=== PATIENT | male | born 1980 | race Two or more races ===

== ENCOUNTER 2025-03-30 17:27 | Inpatient (IN) | payer MEDICAID, SELFPAY ==
[2025-03-30] VITALS (8 sets, daily range): BP systolic 116–146; BP diastolic 75–97; PULSE 57–83; RESP 14–99; TEMP 36.2–36.8; O2SAT 95–99; BMI 40.8
--- NOTE | 2025-03-30 18:22 | EKG_ITS ---
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
--- NOTE | 2025-03-30 18:36 | XR_ITS ---
Examination: CT brain head without contrast. 2-D sagittal coronal reconstructions Date and time of exam:March 30, 2025 1848 hours INDICATIONS: Stroke alert, onset dizziness difficulty walking 90 minutes ago CTDI: vol (mGy):52 DLP: (mGycm):1112 Technique: Multiple CT axial sections of the brain have been obtained, 5 mm slice thickness. Contrast has not been administered. 2-D sagittal, coronal reconstructions have been obtained Low dose protocols were performed. One or more of the following dose reduction techniques were used; automated exposure control, adjustment of the mA and/or KV according to patient size, use of iterative reconstruction technique. Findings: No significant ventricular enlargement. Intra-axial or extra-axial hemorrhage density is not seen. No mass effect or midline shift Basal cisterns are not remarkable. Fourth ventricle is midline. Cranial vault intact. Impression: Negative for acute hemorrhage, mass effect or midline shift
--- NOTE | 2025-03-30 18:36 | XR_ITS ---
Examination: CTA carotids with intravenous contrast CTA brain, head with intravenous contrast. 2-D sagittal, coronal reconstructions. 3-D reconstructions. Exam date and time: March 30, 2025 1854 hours INDICATIONS: Stroke alert today onset dizziness and ataxia CTDI: vol (mGy) 69 DLP: (mGycm) 553 Technique: Multiple CTA axial brain, head carotid images post intravenous contrast injection 75 cc, Isovue-370. 2-D sagittal, coronal reconstructions. 3-D reconstructions, 3-D post processing including vascular maximum intensity projection images. Low dose protocols were performed. One or more of the following dose reduction techniques were used; automated exposure control, adjustment of the mA and/or KV according to patient size, use of iterative reconstruction technique. Findings: No common carotid carotid bifurcation or internal carotid artery stenoses Diffusely small right vertebral artery but no significant vertebral artery stenoses No cerebral large vessel occlusions or thrombus IMPRESSION: No significant neck arterial stenoses No cerebral vessel arterial occlusions or thrombus Consider brain MRI MRA without contrast, stroke protocol, to assess for demyelinating disease, acute ischemic change
--- NOTE | 2025-03-30 18:37 | PD.EDRME ---
Rapid Medical Screening Exam RME Arrival date/time: 03/30/25 17:27 44M with history of DM presents to ED with dizziness and abnormal walking starting 1 hour ago. Patient was driving when this happened. No slurred speech or vision changes. Chief Complaint: Dizziness Time Seen by Provider: 03/30/25 19:26 Vital signs: Vital Signs Temperature 98.2 F 03/30/25 18:16 Pulse Rate 78 03/30/25 18:16 Respiratory Rate 20 03/30/25 18:16 Blood Pressure 125/84 03/30/25 18:16 Pulse Oximetry (%) 95 03/30/25 18:16 Oxygen Delivery Method Room Air 03/30/25 18:16 RME Narrative: Patient is a 44-year-old male who presents to the emergency department after sudden onset of severe sensation of the room spinning and difficulty walking. Family with the patient states that he was walking sideways . He denies facial droop, numbness, tingling, motor weakness in any limbs. No facial tingling or droop. Patient states that this severe sensation of vertigo comes and goes now. However, the initial episode lasted for an hour. Now the patient has episodic vertigo without exacerbation with position change. On exam: Patient has fine rightward horizontal nystagmus which is not exacerbated with position change. His symptoms do not exacerbate with symptom change. Patient has a normal cerebellar exam other than the nystagmus and the sensation of vertigo. 19:28 I received a call from the telemetry neurologist. She gave the patient a 0 on the NIH stroke scale. She however did recommend an MRI of the brain in order to completely rule out cerebellar CVA.. Patient is not a tPA candidate. Teleneurologist said that 1 hour symptom onset episode is quite unusual and lack of exacerbation with position change puts him at risk for cerebellar CVA. Will admit pending the MRI 19:[address] Gupta (resident working with Dr. Lackey). We discussed the patient's case in detail. And he agreed to come down and evaluate the patient for admission pending MRI. EKG (19: 10) normal sinus rhythm at 72 with normal axis, no ectopy and no signs of acute ischemia.
[2025-03-30 19:04] LABS: Basophils % (Auto) 1 % (0-2.5); Eosinophils # (Auto) 0.1 Thou/mm3 (0.0-0.5); Eosinophils % (Auto) 1 % (0-10); Hematocrit 43.3 % (41.0-53.0); Hemoglobin 15.4 g/dL (13.5-16.0); Immature Granulocytes % (Auto) 1 % (0-0); Immature Granulocytes Auto 0.07 Thou/mm3 (0.00-0.00); Lymphocytes # (Auto) 2.5 Thou/mm3 (1.0-4.8); Lymphocytes % (Auto) 32 % (10-50); Mean Corpuscular HGB Conc 35.6 g/dl (31.0-37.0); Mean Corpuscular Hemoglobin 32.1 pg (25.0-35.0); Mean Corpuscular Volume 90 fL (80-100); Monocytes # (Auto) 0.7 Thou/mm3 (0.0-0.8); Monocytes % (Auto) 9 % (0-12); Neutrophils # (Auto) 4.4 Thou/mm3 (1.8-7.7); Neutrophils % (Auto) 57 % (37-80); Nucleated Red Blood Cell % 0 /100 WBC (0); Platelet Count 219 Thou/mm3 (140-440); RDW Standard Deviation 44.6 fL (35.1-43.9); White Blood Count 7.7 Thou/mm3 (3.8-10.6)
--- NOTE | 2025-03-30 19:09 | PC.NURSE ---
PER TELE-NEUROLOGIST PATIENT NIH SCORE WAS 0 .
[2025-03-30 19:17] LABS: INR 1.1 (0.9-1.3); Partial Thromboplastin Time 27.9 Seconds (22.0-36.0); Prothrombin Time 12.4 Seconds (9.0-12.2)
[2025-03-30 19:21] LABS: Alanine Aminotransferase 32 U/L (10-49); Albumin, Serum 4.8 gm/dL (3.5-5.0); Albumin/Globulin Ratio 2.3 (1.2-2.2); Alkaline Phosphatase 79 U/L (46-116); Anion Gap 11 (7-16); Aspartate Amino Transferase 25 U/L (0-34); BUN/Creatinine Ratio 14 Ratio (12-20); Bilirubin,Total 1.3 mg/dL (0.3-1.2); Blood Urea Nitrogen 14 mg/dL (9-23); Calcium 9.6 mg/dL (8.3-10.6); Calcium (Corrected) 9.6 mg/dL (8.5-10.1); Carbon Dioxide 24.5 mMol/L (20.0-31.0); Chloride 105 mMol/L (98-107); Globulin 2.1 gm/dL (2.3-3.5); Glucose 211 mg/dL (74-106); Magnesium 2.2 mg/dL (1.6-2.6); Osmolality,Calculated 285 (275-295); Potassium 3.9 mMol/L (3.4-5.1); Sodium 140 mMol/L (136-145); Total Protein 6.9 gm/dL (5.7-8.2); Troponin I < 0.020 ng/mL (0.0-0.045); eGFR > 60 See Note
[2025-03-30] MEDS: MECLIZINE HCL 25 MG TABLET PO (19:21)
--- NOTE | 2025-03-30 19:29 | ESCONSULT_ITS ---
Tele Neuro Consultation Consultation Date 03/30/25 Most Recent Vital Signs Last Vital Signs Temp 98.2 F 03/30/25 18:16 Pulse 83 03/30/25 19:22 Resp 15 03/30/25 19:22 BP 146/97 H 03/30/25 19:22 Pulse Ox 98 03/30/25 19:22 O2 Del Method Room Air 03/30/25 19:22 Laboratory-Coagulation Panel PT 12.4 Seconds (9.0-12.2) H 03/30/25 18:48 INR 1.1 (0.9-1.3) 03/30/25 18:48 APTT 27.9 Seconds (22.0-36.0) 03/30/25 18:48 Consultation Narrative [facility] Tele[facility]urology Consult [facility] Patient Name:???Shravan Knight Date of :???1980 Identification Number:??? Date of Service:???03/30/2025 18:38:23 Diagnosis:?R42 - Dizziness/ Vertigo/ Giddiness Impression: ?Shravan Knight is a 44 y.o. man with a history of diabetes who was LKW at around 1700. He was driving to a store with his when he suddenly felt dizzy. He said he felt like the road was moving. Nothing like this has ever happened to him before. The dizziness was constant for about an hour. Then it stopped and has been intermittent, lasting minutes at a time since then. He feels a little dizzy lying down on the CT table. He says the dizziness feels like a spinning sensation. Denies any headache. Denies any unilateral numbness or weakness. Denies any change in speech. He says some days he has blurry vision. NIHSS 0. He is able to stand and walk independently. Non contrast head CT shows no acute findings. CTA head/neck shows no LVO. Patient is presenting with an episodic vestibular syndrome. Unclear if it is triggered. Given the isolated dizziness, differential diagnosis includes a peripheral vestibulopathy (e.g. vestibular neuritis) more likely than stroke. TNK was not offered due to lack of disabling findings on exam. TIA is NOT on the differential as he continues to have episodes of dizziness now, about 2 hours after onset. ? ? ?Recommendations: ?- Start aspirin 325 mg daily for stroke prevention for now; can D/C if MRI brain shows no acute ischemia ?- Permissive hypertension up to 220/120 x 24 hours or less if MRI happens sooner and shows no acute stroke; then goal BP normotensive ?- Continuous cardiac monitoring to evaluate for paroxysmal atrial fibrillation ?- MRI brain without contrast to evaluate for acute ischemia ?- Send routine stroke labs including HbA1c, fasting lipid panel ?- PT/OT/ST evaluation when able ? Our recommendations are outlined below. Recommendations: ? Stroke/Telemetry Floor ? Neuro Checks (Q2) ? Bedside Swallow Eval ? DVT Prophylaxis ? IV Fluids, Normal Saline ? Head of Bed 30 Degrees ? Euglycemia and Avoid Hyperthermia (PRN Acetaminophen) ? Initiate or continue Aspirin 325 MG daily ? Antihypertensives PRN if Blood pressure is greater than 220/120 or there is a concern for End organ damage/contraindications for permissive HTN. If blood pressure is greater than 220/120 give labetalol PO or IV or Vasotec IV with a goal of 15% reduction in BP during the first 24 hours. Sign Out: ? Discussed with Emergency Department Provider Advanced Imaging:CTA Head and Neck Completed. LVO:No Patient is not a candidate for ADORE Metrics: Last Known Well: 03/30/2025 17:00:00 Dispatch Time: 03/30/2025 18:38:23 Arrival Time: 03/30/2025 17:27:00 Initial Response Time: 03/30/2025 18:41:11Symptoms: dizziness. Initial patient interaction: 03/30/2025 18:44:08 NIHSS Assessment Completed: 03/30/2025 18:58:29Patient is not a candidate for Thrombolytic. Thrombolytic Medical Decision: 03/30/2025 18:58:31Patient was not deemed ca ndidate for Thrombolytic because of following reasons: Stroke severity too mild (non-disabling) . CT Head: I personally reviewed all the CT images that were available to me and it showed: no signs of acute ischemia or acute hemorrhage. I personally reviewed the CTA head/neck. There are no signs of LVO. Primary Provider Notified of Diagnostic Impression and Management Plan on: 03/30/2025 19:28:44 History of Present Illness:Patient is a 44 year old Male. Patient was brought by private transportation with symptoms of dizziness. Shravan Knight is a 44 y.o. man with a history of diabetes who was LKW at around 1700. He was driving to a store with his when he suddenly felt dizzy. He said he felt like the road was moving. Nothing like this has ever happened to him before. The dizziness was constant for about an hour. Then it stopped and has been intermittent, lasting minutes at a time since then. He feels a little dizzy lying down on the CT table. He says the dizziness feels like a spinning sensation. Denies any headache. Denies any unilateral numbness or weakness. Denies any change in speech. He says some days he has blurry vision. ? Past Medical History: Other PMH:? diabetes Medications: No Anticoagulant use? No Antiplatelet use Reviewed EMR for current medications Allergies:? Reviewed,NKDA Social History: Smoking: No Alcohol Use: Yes Family History: There is no family history of premature cerebrovascular disease pertinent to this consultation ROS : 14 Points Review of Systems was performed and was negative except mentioned in HPI. Past Surgical History: There Is No Surgical History Contributory To Today?s Visit ? Examination: BP(125/84),?Pulse(76), 1A: Level of Consciousness - Alert; keenly responsive?+ 0 1B: Ask Month and Age - Both Questions Right?+ 0 1C: Blink Eyes & Squeeze Hands - Performs Both Tasks?+ 0 2: Test Horizontal Extraocular Movements - Normal?+ 0 3: Test Visual Mcrae - No Visual Loss?+ 0 4: Test Facial Palsy (Use Grimace if Obtunded) - Normal symmetry?+ 0 5A: Test Left Arm Motor Drift - No Drift for 10 Seconds?+ 0 5B: Test Right Arm Motor Drift - No Drift for 10 Seconds?+ 0 6A: Test Left Leg Motor Drift - No Drift for 5 Seconds?+ 0 6B: Test Right Leg Motor Drift - No Drift for 5 Seconds?+ 0 7: Test Limb Ataxia (FNF/Heel-Miranda) - No Ataxia?+ 0 8: Test Sensation - Normal; No sensory loss?+ 0 9: Test Language/Aphasia - Normal; No aphasia?+ 0 10: Test Dysarthria - Normal?+ 0 11: Test Extinction/Inattention - No abnormality?+ 0 NIHSS Score:?0 NIHSS Free Text :?patient able to stand and walk independently Pre-Morbid Modified Falls Scale:0 Points = No symptoms at all Spoke with :?Dr. Arteaga This consult was conducted in real time using interactive audio and video technology. Patient was informed of the technology being used for this visit and agreed to proceed. Patient located in hospital and provider located at home/office setting. Patient is being evaluated for possible acute neurologic impairment and high probability of imminent or life-threatening deterioration. I spent total of 47 minutes providing care to this patient, including time for face to face visit via telemedicine, review of medical records, imaging studies and discussion of findings with providers, the patient and/or family. Dr Gabriella Rodriguez [facility] For Inpatient follow-up with [facility] physician please call [facility] at . As we are not an outpatient service for any post hospital discharge needs please contact the hospital for assistance. If you have any questions for the [facility] physicians or need to reconsult for clinical or diagnostic changes please contact us via [facility] at .
[2025-03-30] MEDS: Aspirin 325 MG TABLET PO (19:48)
--- NOTE | 2025-03-30 20:23 | ESHP_ITS ---
Documentation for date of: 03/30/25 HPI History of Present Illness Chief complaint: dizziness History of present illness: 44-year-old male with past medical history of diabetes presented to the ED today due to dizziness. Last well-known was around 1700. Patient states he was driving to the store with his when he suddenly felt like the room was spinning. Patient had to pull to the side of the road and have his drive to the store. When patient arrived to the store as he was walking to the [place] he felt the dizziness got worse to the point the patient had nausea. Patient reported about 3 more episodes of vomiting and decided to bring the patient to the ER. He gets worse when he ambulates or moves and gets better while laying in bed. Patient also endorses some on and off blurry vision that has been going on for about 1 to 2 weeks. In the ER stroke alert was called teleneurology was consulted patient had NIHSS is scale of 0 due to this no TNK was administered. Teleneurology recommended to continue to treat as CVA until MRIs done as there is still concern for cerebellar stroke. At this time patient denies headache, fever, chills, blurry vision, shortness of breath, chest pain, abdominal pain, weakness. ED course: ED vitals: BP 125/84, HR 78, RR 20, O2 sat 95% room air ED labs: CBC unremarkable, CMP shows glucose 211, T. bili 1.3, rest within normal limits In the ED patient received loading dose of aspirin and meclizine x 1 PMHx: As above SX Hx: Right knee surgery Social Hx: Denies cigarette use, denies illicit substances including THC, social alcohol user FH X: Diabetes on mother side Review of Systems Review of Systems Systems Reviewed: All systems reviewed, normal except as documented Narrative Review of Systems: All 12 systems reviewed and found normal unless otherwise stated in the HPI. Exam Vital Signs Temp Pulse Resp BP Pulse Ox O2 Del Method 98.2 F 69 14 116/84 99 Room Air 03/30/25 19:53 03/30/25 19:53 03/30/25 19:53 03/30/25 19:53 03/30/25 19:53 03/30/25 19:53 Narrative Exam Physical Exam GENERAL: NAD, AAOx3, obese HEENT: Moist mucosa. Eyes open, symmetrical, & clear CARDIO: Heart RRR, no obvious murmurs PULM: No noted coughing/dyspnea CTA B/L, no R/W/R GI: Abdomen soft, nondistended, no pain on palpation. BSx4 SKIN/MSK/EXT: No wounds/rashes/edema/amputations, no pain on palpation. Pedal pulses present B/L NEURO: AAOx3, strength and sensation intact, able to move all 4 extremities with equal strength Results: Labs 03/30/25 18:48 03/30/25 18:48 Labs: Short CBC 03/30/25 Range/Units 18:48 WBC 7.7 (3.8-10.6) Thou/mm3 Hgb 15.4 (13.5-16.0) g/dL Hct 43.3 (41.0-53.0) % Plt Count 219 (140-440) Thou/mm3 BMP 03/30/25 18:48 Sodium 140 Potassium 3.9 Chloride 105 Carbon Dioxide 24.5 BUN 14 Creatinine 1.0 Glucose 211 H Calcium 9.6 Cardiac Enzymes 03/30/25 Range/Units 18:48 Troponin I < 0.020 (0.0-0.045) ng/mL Liver Function 03/30/25 Range/Units 18:48 Total Bilirubin 1.3 H (0.3-1.2) mg/dL AST 25 (0-34) U/L ALT 32 (10-49) U/L Alkaline Phosphatase 79 (46-116) U/L Albumin 4.8 (3.5-5.0) gm/dL Quality Measures Quality Measures VTE prophylaxis Medications Home Medications and Allergies Allergies Allergy/AdvReac Type Severity Reaction Status Date / Time No Known Allergies Allergy Verified 03/30/25 17:31 Visit Medications Acetaminophen (Acetaminophen 325 Mg Tablet) 650 mg PO Q6H PRN PRN Reason: Fever >99.5 Stop: 04/29/25 20:06 Acetaminophen (Acetaminophen 500 Mg Tablet) 1,000 mg PO Q6H PRN PRN Reason: PAIN SCALE 1-3 (mild Stop: 04/29/25 20:06 Aspirin (Aspirin Ec 81 Mg Tabec) 81 mg PO QDAY EKTA Stop: 04/30/25 08:59 Atorvastatin Calcium (Atorvastatin Calcium 20 Mg Tablet) 80 mg PO HS EKTA Stop: 04/29/25 20:59 Labetalol HCl (Labetalol Inj 5 Mg/Ml Vial 20 Ml) 10 mg IVP Q6H PRN PRN Reason: SBP>220 Stop: 04/29/25 20:21 Ondansetron HCl (Ondansetron Inj 2 Mg/Ml Inj 2 Ml) 4 mg IVP Q6H PRN; Protocol PRN Reason: NAUSEA OR VOMITING Stop: 04/29/25 20:06 Discontinued Medications Aspirin (Aspirin 325 Mg Tablet) 325 mg PO X1 ONE Stop: 03/30/25 19:40 Last Admin: 03/30/25 19:48 Dose: 325 mg Meclizine HCl (Meclizine Hcl 25 Mg Tablet) 25 mg PO X1 ONE Stop: 03/30/25 18:37 Last Admin: 03/30/25 19:21 Dose: 25 mg Assessment & Plan Plan 44-year-old male with past medical history of diabetes who came to the ED due to dizziness. Patient is admitted for CVA workup. #CVA workup #Dizziness Patient had dizziness onset around 5 PM on 03/30/2025 worsens with movement gets better while laying still Initial NIHSS: 0, no TNK was administered CT head and CTA head/neck negative for LVO acute hemorrhage, midline shift, mass effect ? Permissive hypertension, labetalol as needed for systolic blood pressure more than 220 ? MRI brain ? Echo bubble study ? IV fluids ? Euglycemia ? Speech, physical therapy consulted ? Neurochecks every 4 ? N.p.o. till swallow screen passed ? Telemetry to evaluate for A-fib #Diabetes mellitus type 2 ? Follow-up A1c ? SSI ? Hypoglycemia protocol in place Health Maintenance: Disposition: Telemetry, CVA workup Fluids: NS Feeding: N.p.o. till swallow screen Thrombo prophylaxis: SCDs Gastric Ulcer prophylaxis: Not indicated CODE STATUS: Limited code, no intubation Case discussed with my attending Dr. Ziyad Garcia MD PGY-1 Attending Provider Attestation/Addendum I, Tahmina Lackey DO, attest that I was physically present for the villeda portions of the service and evaluated the patient with the resident and I reviewed and discussed the case with the resident and agree with the resident's findings and plans of care as documented above Patient is a 44 year old male with Pmhx of Type 2 NIDDM who presented to the ED with dizziness that began at 5pm this evening. Patient was driving with his to the store when he began feeling dizzy such that patient had to wire puller. Patient states that he had occasional episodes of dizziness in the past, but are usually self-limited. Patient takes Janumet 100mg/200mg PO daily and Jardiance 25mg PO daily. He also works in the [employer] and states that he stays hydrated during the day. He denies any fevers, chills, sinus pressure. He reports some nausea, but dizziness has resolved. He describes it as the room appears to be spinning and worse with movement. He endorses having about 2 weeks of blurriness and states that his primary doctor referred him to optometry. Patient states he has been compliant with his medications. CT head was done in the ED showing no acute intracranial findings. CTA head/neck was also unremarkable. He received meclizine and aspirin. Patient was evaluated by teleneuro and recommends MRI. TNK was not recommended as vertigo is more likely than CVA. Craig Halpike Negative on exam. MS 4+/5 in all four extremities. Gross sensation intact. No focal neurological deficits. No Nystagmus noted on exam. Will admit to telemetry for further workup of CVA. Will order MRI and echo, allow for permissive hypertension and start on aspirin 325mg and statin.
--- NOTE | 2025-03-30 20:51 | EDNOTE_ITS ---
ED Dizzyness RME/HPI General Chief Complaint: Dizziness Stated Complaint: Dizziness, difficulty ambulating Time Seen by Provider: 03/30/25 19:26 Arrival date/time: 03/30/25 17:27 RME / HPI RME / HPI Narrative: Dr. Arteaga?s Main ED Evaluation: Patient is a 44-year-old male who presents to the emergency department after sudden onset of severe sensation of the room spinning and difficulty walking. Family with the patient states that he was walking sideways . He denies facial droop, numbness, tingling, motor weakness in any limbs. No facial tingling or droop. Patient states that this severe sensation of vertigo comes and goes now. However, the initial episode lasted for an hour. Now the patient has episodic vertigo without exacerbation with position change. Related Data Previous Rx's ?Medication ?Instructions ?Recorded ibuprofen 800 mg tablet 800 mg PO TID PRN pain #30 t abs 08/12/23 ibuprofen 600 mg tablet 600 mg PO TID PRN pain #30 t abs 02/10/24 lidocaine 5 % topical patch 1 patch topical QDAY #15 e a 02/10/24 (Lidoderm) Allergies Allergy/AdvReac Type Severity Reaction Status Date / Time No Known Allergies Allergy Verified 03/30/25 17:31 Review of Systems Review of Systems Systems Reviewed: All systems reviewed, normal except as documented Past Medical History Past Medical History NEUROLOGIC: Negative Neurological Disorders or Seizures CARDIAC: Negative Cardiac Disorders or Congestive Heart Failure RESPIRATORY: Negative Chronic Obstructive Pulmonary Disease (COPD) or Asthma GASTROINTESTINAL: Negative Gastrointestinal Disorders GENITOURINARY: Negative Genitourinary Disorders or Renal Disease MUSCULOSKELETAL: Positive Musculoskeletal Disorders and Arthritis (knee); Negative Gout ENDOCRINE: Negative Endocrine Disorders, Diabetes Mellitus Type 1 or Diabetes Mellitus Type 2 HEMATOLOGIC: Negative Sickle Cell Disease OTHER HISTORY: Negative Hospitalization, Autoimmune Disease, Blood Transfusions, Blood Transfusion Reaction, Anesthesia Reactions, MRSA, Clostridium Difficile or Cancer Family History FAMILY HISTORY: Negative Family Neurologic Problems, Family Psychiatric Problems, Family Respiratory Disorders, Family Cardiac Disorders, Family Gastrointestinal Problems, Family Cancer, Family Surgery or Family Anesthesia Reaction Social History SMOKING STATUS: Never smoker SUBSTANCE USE: does not use ED Exam Narrative Physical exam: GENERAL APPEARANCE: alert and oriented x 4, well-developed, well-nourished, no acute distress VITALS: All vitals were reviewed and the pulse ox is 99% on room air, which is normal according to my interpretation. HEENT: Normocephalic, atraumatic; pupils equal, round, reactive to light; EOMI; fine rightward horizontal nystagmus that is not exacerbated on positional changes; mucous membranes pink, moist; oropharynx clear NECK: Supple LUNGS: CTABL; no wheezes, no rales, no rhonchi HEART: Regular rate, regular rhythm; normal S1, S2; no murmurs ABDOMEN: non distended; normal BS; soft, no tenderness, no guarding, no rebound; no masses, no organomegaly, no hernia BACK: no CVA tenderness EXTREMITIES: atraumatic; no edema NEUROLOGIC: awake; alert and oriented x4; cranial nerves II-XII grossly intact; no focal sensory or motor deficits; no intention tremor, steccato speech, dysmetria or dysdiadochokinesia PSYCHIATRIC: appropriate mood and affect SKIN: warm, dry, normal color; no rashes Course Course Course Narrative: 44-year-old male who presented to the emergency department with acute onset of severe vertigo-like symptoms lasting for an hour along with ataxia. After that it improved but has been coming and going. Position change does not exacerbate the patient's symptoms. A stroke alert was called and the patient received CT head without contrast as well as a CTA head and neck. I spoke with the teleneurologist and patient received a 0 on the NIH stroke scale and was recommended not to have TNK. However it was recommended that the patient receiv e an MRI in the morning. Patient received aspirin as well as meclizine without improvement. I called and spoke with the resident for Dr. Bacon and patient to be admitted. Quality Measures Suspected type of Stroke: Unknown at this time Tenecteplase given: Reason(s) TPA not given: Stroke severity too mild (non-disabling) not given stroke Orders Category Date Time Status Bedside Blood Glucose NOW Care 03/30/25 18:36 Active Blood glucose [Bedside Blood Glucose] NOW Care 03/30/25 18:22 Completed Latent Print Examiner NOW Care 03/30/25 18:36 Active Continuous Pulse Oximetry NOW Care 03/30/25 18:36 Completed EKG (ED ONLY) *Do not use* NOW Care 03/30/25 18:22 Completed In and Out Catheter NEEDED Care 03/30/25 18:36 Active Insert IV NOW Care 03/30/25 18:36 Active NIH Stroke Scale now Care 03/30/25 18:36 Active NPO NOW Care 03/30/25 18:36 Active Nurse Swallow Screen x1 Care 03/30/25 18:36 Active Consult to Neurology / Tele-Neurology Routine Cons 03/30/25 18:[address] angio stroke protocol Stat Exams 03/30/25 18:[address] stroke protocol Stat Exams 03/30/25 18:36 Completed EKG (ED Only) Stat Exams 03/30/25 18:22 Draft CBC Stat Lab 03/30/25 18:48 Completed Comprehensive Metabolic Panel Stat Lab 03/30/25 18:48 Completed Drug Screen,Urine Stat Lab 03/30/25 18:36 Ordered Magnesium Stat Lab 03/30/25 18:48 Completed Partial Thromboplastin Time Stat Lab 03/30/25 18:48 Completed Prothrombin Time with INR Stat Lab 03/30/25 18:48 Completed Troponin I Stat Lab 03/30/25 18:48 Completed Urinalysis Stat Lab 03/30/25 18:36 Ordered Urine Culture Stat Lab 03/30/25 18:36 Ordered Aspirin Med 03/30/25 19:39 Discontinued 325 mg PO X1 ONE Meclizine HCl [Antivert] Med 03/30/25 18:36 Discontinued 25 mg PO X1 ONE Oxygen Delivery NOW RT 03/30/25 18:36 Active Vital Signs Vital signs: Vital Signs Temperature 98.2 F 03/30/25 18:16 Pulse Rate 78 03/30/25 18:16 Respiratory Rate 20 03/30/25 18:16 Blood Pressure 125/84 03/30/25 18:16 Pulse Oximetry (%) 95 03/30/25 18:16 Oxygen Delivery Method Room Air 03/30/25 18:16 Dizziness MDM Narrative MDM Narrative:: 19:28 I received a call from the telemetry neurologist, Dr. Rodriguez. She gave the patient a 0 on the NIH stroke scale. She however did recommend an MRI of the brain in order to completely rule out cerebellar CVA.. Patient is not a tPA candidate. Teleneurologist said that 1 hour symptom onset episode is quite unusual and lack of exacerbation with position change puts him at risk for cerebellar CVA. Will admit pending the MRI 19:[address] Gupta (resident working with Dr. Lackey). We discussed the patient's case in detail. And he agreed to come down and evaluate the patient for admission pending MRI. EKG (19: 10) normal sinus rhythm at 72 with normal axis, no ectopy and no signs of acute ischemia. Patient data External records reviewed:: [facility] previous records (Per chart review, patient has no relevant previous ED visits.) Clinical information provided by:: patient Social determinants that could affect healthcare access:: none Patient has the following chronic illnesses:: none How is presenting disease/condition affected by chronic disease/condition?: no chronic disease Evaluation data The following diagnostics were reviewed and interpreted by me:: lab results, radiology exam(s) and EKG tracing(s) Lab and/or radiology exams considered but not ordered:: none Interpretation Summary: CBC normal, CMP normal. [facility] Report Signed Patient: JESSICA TOVAR Record#: [id number] Birthdate: 1980 Age/Sex: 44 / M Location: [facility] Attending Dr: Ordering Physician: Sha Morrison PA-C Date of Service: 03/30/25 Procedure(s): CT stroke protocol Accession Number(s): [id number] cc: Iman Peter; Lyndon Burns MD; Sha Morrison PA-C~ Examination: CT brain head without contrast. 2-D sagittal coronal reconstructions Date and time of exam:March 30, 2025 1848 hours INDICATIONS: Stroke alert, onset dizziness difficulty walking 90 minutes ago CTDI: vol (mGy):52 DLP: (mGycm):1112 Technique: Multiple CT axial sections of the brain have been obtained, 5 mm slice thickness. Contrast has not been administered. 2-D sagittal, coronal reconstructions have been obtained Low dose protocols were performed. One or more of the following dose reduction techniques were used; automated exposure control, adjustment of the mA and/or KV according to patient size, use of iterative reconstruction technique. Findings: No significant ventricular enlargement. Intra-axial or extra-axial hemorrhage density is not seen. No mass effect or midline shift Basal cisterns are not remarkable. Fourth ventricle is midline. Cranial vault intact. Impression: Negative for acute hemorrhage, mass effect or midline shift Dictated By: Lyndon Burns MD Signed By: <Electronically signed by Lyndon Burns MD in [place] 03/30/25 1859 [facility] Report Signed Patient: JESSICA TOVAR Record#: [id number] Birthdate: 1980 Age/Sex: 44 / M Location: [facility] Attending Dr: Ordering Physician: Sha Morrison PA-C Date of Service: 03/30/25 Procedure(s): CT angio stroke protocol Accession Number(s): [id number] cc: Iman Peter; Lyndon Burns MD; Sha Morrison PA-C~ Examination: CTA carotids with intravenous contrast CTA brain, head with intravenous contrast. 2-D sagittal, coronal reconstructions. 3-D reconstructions. Exam date and time: March 30, 2025 1854 hours INDICATIONS: Stroke alert today onset dizziness and ataxia CTDI: vol (mGy) 69 DLP: (mGycm) 553 Technique: Multiple CTA axial brain, head carotid images post intravenous contrast injection 75 cc, [id number]. 2-D sagittal, coronal reconstructions. 3-D reconstructions, 3-D post processing including vascular maximum intensity projection images. Low dose protocols were performed. One or more of the following dose reduction techniques were used; automated exposure control, adjustment of the mA and/or KV according to patient size, use of iterative reconstruction technique. Findings: No common carotid carotid bifurcation or internal carotid artery stenoses Diffusely small right vertebral artery but no significant vertebral artery stenoses No cerebral large vessel occlusions or thrombus IMPRESSION: No significant neck arterial stenoses No cerebral vessel arterial occlusions or thrombus Consider brain MRI MRA without contrast, stroke protocol, to assess for demyelinating disease, acute ischemic change Dictated By: Lyndon Burns MD Signed By: <Electronically signed by Lyndon Burns MD in [place]> 03/30/25 192 Medications / Prescriptions Medications or Prescriptions considered but not ordered:: none Medication administrations:: Medication Administration History Acetaminophen (Acetaminophen 325 Mg Tablet) 650 mg PO Q6H PRN PRN Reason: Fever >99.5 Stop: 04/29/25 20:06 Acetaminophen (Acetaminophen 500 Mg Tablet) 1,000 mg PO Q6H PRN PRN Reason: PAIN SCALE 1-3 (mild Stop: 04/29/25 20:06 Aspirin (Aspirin 325 Mg Tablet) 325 mg PO QDAY [facility] Stop: 04/30/25 08:59 Atorvastatin Calcium (Atorvastatin Calcium 20 Mg Tablet) 80 mg PO HS [facility] Stop: 04/29/25 20:59 Dextrose (Dextrose 50%-Water Inj 50 Ml Syringe) 25 ml IV Q15MIN PRN PRN Reason: BG 50-70 responsive npo pt Stop: 04/29/25 20:36 Dextrose (Dextrose 50%-Water Inj 50 Ml Syringe) 50 ml IV Q15MIN PRN PRN Reason: BG <50 OR BG <70 & pt unresponsive Stop: 04/29/25 20:36 Glucagon (Glucagon Inj 1 Mg Vial) 1 mg IM Q15MIN PRN PRN Reason: BG <70, and no IV access Sodium Chloride (Ns) 1,000 mls @ 60 mls/hr IV .[id number] [facility] Stop: 04/29/25 20:38 Insulin Human Lispro (Insulin Lispro (Admelog) 1 Unit/0.01 Ml Unit) 0 unit SC AC [facility]; Protocol Stop: 04/30/25 07:29 Labetalol HCl (Labetalol Inj 5 Mg/Ml Vial 20 Ml) 10 mg IVP Q6H PRN PRN Reason: SBP>220 Stop: 04/29/25 20:21 Ondansetron HCl (Ondansetron Inj 2 Mg/Ml Inj 2 Ml) 4 mg IVP Q6H PRN; Protocol PRN Reason: NAUSEA OR VOMITING Stop: 04/29/25 20:06 Discontinued Medications Aspirin (Aspirin 325 Mg Tablet) 325 mg PO X1 ONE Stop: 03/30/25 19:40 Last Admin: 03/30/25 19:48 Dose: 325 mg Documented By: CVL Aspirin (Aspirin Ec 81 Mg Tabec) 81 mg PO QDAY [facility] Stop: 04/30/25 08:59 Meclizine HCl (Meclizine Hcl 25 Mg Tablet) 25 mg PO X1 ONE Stop: 03/30/25 18:37 Last Admin: 03/30/25 19:21 Dose: 25 mg Documented By: CVL see above Consultations Consultation(s) initiated? (list below): Yes Diagnosis Dizziness Differential Diagnosis: other (peripheral vertigo, cerebellar CVA, vestibular neuritis) Most likely diagnosis given after review of the tests above:: vertigo, r/o cerebellar stroke Admission Indicated Admission indicated?: indicated Admission Request Was there a request for admission?: Yes Admission Attestation Admission request attestation: Discussed case with [] from Hospitalist service regarding admission. Discussed patients ED course, exam findings, labs, and radiology results. The Hospitalist [agrees,declines] to accept the patient for admission. Disposition Plan Disposition Plan: Admit Critical Care Time Critical Care Time Critical Care Time: Yes Total Critical Care Time (min.): 45 Attestation: The high probability of sudden, clinically significant deterioration in the patient?s condition required the highest level of my preparedness to intervene urgently. The services I provided to this patient were to treat and/or prevent clinically significant deterioration. Services included the following: chart data review, reviewing nursing notes and/or old charts, documentation time, sap business intelligence consultant collaboration regarding findings and treatment options, medication orders and management, direct patient care, vital sign assessments and ordering, interpreting and reviewing diagnostic studies and lab tests. Aggregate critical care time includes only time during which I was engaged in work directly related to the patient?s care, as described above, whether at bedside or elsewhere in the Emergency Department. It did not include time spent performing other reported procedures or the services of residents, students, nurses or physician assistants. Discharge Plan Plan Patient Disposition: Admit Acute Care w/in Hospital Problem List Clinical Impression: Vertigo
[2025-03-30] MEDS: ATORVASTATIN CALCIUM 20 MG TABLET 80 MG PO (22:14)
[2025-03-30] MEDS: SODIUM CHLORIDE 0.9% 1000 ML 1,000 ML 60 ML IV (22:16)
[2025-03-30 22:23] LABS: Thyroid Stimulating Hormone 1.15 uIU/mL (0.55-4.78)
--- NOTE | 2025-03-30 22:23 | PC.NURSE ---
Report called to floor nurse BRODY Harmon
[2025-03-31] VITALS (8 sets, daily range): BP systolic 110–152; BP diastolic 69–97; PULSE 53–104; RESP 12–98; TEMP 36–36.8; O2SAT 97–99; BMI 40.4
--- NOTE | 2025-03-31 | XR_ITS ---
Examinations: MRI Brain without intravenous contrast. MRA brain without intravenous contrast. MRA carotids without intravenous contrast 3-D vascular reconstructions Date and time of exam: March 31, 2025 0933 hours INDICATIONS: Stroke alert March 30, 2025, onset focal neurologic deficit, dizziness blurred vision beginning yesterday Technique: Multiple axial and sagittal images of the brain have been obtained MRA brain carotid images without contrast obtained, including 3-D postprocessing, vascular maximum intensity projection images Findings: Sellaturcica is not enlarged. The optic chiasm and infundibular stalk are not remarkable. Prepontine and interpeduncular cisterns are not enlarged. No localized enlargement of the medulla or pato. Fourth ventricle and cerebellar tonsils normal in position. Subacute hemorrhage is not seen. Fourth ventricle is midline. Mass in the cerebellopontine angle region is not evident. 7th and 8th nerve complexes exhibits symmetry. Globes are symmetrical with no retro-orbital mass. Increased white matter signal not seen Diffusion-weighted images demonstrate no focus of restricted diffusion Mass-effect upon the ventricular system is not identified. MRA carotid images degraded by patient motion. MRA brain images no large vessel occlusions Impression: Negative for acute hemorrhage mass effect or midline shift No acute infarct No MR findings diagnostic for demyelinating disease Right mastoiditis Significant maxillary antral ethmoid chronic sinusitis
[2025-03-31 06:44] LABS: Basophils # (Auto) 0.1 Thou/mm3 (0.0-0.2); Basophils % (Auto) 1 % (0-2.5); Eosinophils # (Auto) 0.1 Thou/mm3 (0.0-0.5); Eosinophils % (Auto) 1 % (0-10); Hematocrit 44.5 % (41.0-53.0); Hemoglobin 15.5 g/dL (13.5-16.0); Immature Granulocytes % (Auto) 1 % (0-0); Immature Granulocytes Auto 0.05 Thou/mm3 (0.00-0.00); Lymphocytes # (Auto) 2.2 Thou/mm3 (1.0-4.8); Lymphocytes % (Auto) 32 % (10-50); Mean Corpuscular HGB Conc 34.8 g/dl (31.0-37.0); Mean Corpuscular Volume 92 fL (80-100); Monocytes # (Auto) 0.6 Thou/mm3 (0.0-0.8); Monocytes % (Auto) 9 % (0-12); Neutrophils # (Auto) 3.9 Thou/mm3 (1.8-7.7); Neutrophils % (Auto) 57 % (37-80); Nucleated Red Blood Cell % 0 /100 WBC (0); Platelet Count 203 Thou/mm3 (140-440); Red Blood Count 4.85 Miln/mm3 (4.50-5.90); White Blood Count 6.9 Thou/mm3 (3.8-10.6)
[2025-03-31 06:46] LABS: Glucose Estimated Average 163 mg/dL (80-131); Hemoglobin A1C 7.3 % Hgb (4.8-6.0)
[2025-03-31 06:54] LABS: Alanine Aminotransferase 30 U/L (10-49); Albumin, Serum 4.3 gm/dL (3.5-5.0); Albumin/Globulin Ratio 2.2 (1.2-2.2); Alkaline Phosphatase 65 U/L (46-116); Anion Gap 11 (7-16); Aspartate Amino Transferase 22 U/L (0-34); BUN/Creatinine Ratio 19 Ratio (12-20); Blood Urea Nitrogen 13 mg/dL (9-23); Calcium 8.5 mg/dL (8.3-10.6); Calcium (Corrected) 8.5 mg/dL (8.5-10.1); Carbon Dioxide 26.1 mMol/L (20.0-31.0); Cardiac Risk Estimate 6.5 RATIO (4.0-6.7); Chloride 107 mMol/L (98-107); Cholesterol 182 mg/dL (132-200); Creatinine (Component) 0.7 mg/dL (0.6-1.3); Estimated Creatinine Clearance 171.8 mL/min (>60); Glucose 124 mg/dL (74-106); HDL Cholesterol 28 mg/dL (40-60); LDL Cholesterol,Calculated 123 mg/dL (0-130); Osmolality,Calculated 287 (275-295); Phosphorous 2.8 mg/dL (2.4-5.1); Potassium 3.6 mMol/L (3.4-5.1); Sodium 144 mMol/L (136-145); Total Protein 6.3 gm/dL (5.7-8.2); Triglycerides 157 mg/dL (30-150); eGFR > 60 See Note
--- NOTE | 2025-03-31 09:00 | PCS.ST ---
Swallow Evaluation completed. No dysphagia. Regular diet consistencies, diabetic restrictions.
[2025-03-31] MEDS: Aspirin 325 MG TABLET PO (09:12)
--- NOTE | 2025-03-31 09:44 | XR_ITS ---
Examination: Abdomen sonogram, Limited Date and time of exam: March 31, 2025 12:36 PM INDICATIONS: Elevated bilirubin on laboratory examination today Technique: Real-time porter scale transabdominal sonographic images of the upper abdomen obtained. Findings: Normal gallbladder Normal common bile duct 0.5 cm Pancreatic head 3.3 cm Liver 17.9 cm fatty infiltration Normal hepatopedal portal venous flow Patent IVC IMPRESSION: Normal gallbladder Normal common bile duct Hepatomegaly, fatty liver
--- NOTE | 2025-03-31 11:44 | PC.SS ---
SS met with patient regarding his d/c plan. Pt is alert/oriented. Pt was admitted for CVA Work Up. Patient's current address is: [address], [place]. Patient's contact information is correct on facesheet. Pt resides with and kids. Pt ambulates independently without assistance or DME. Pt is ok with all ADLs. Patient?s pharmacy of choice is [facility] [address]. Pt named his , Evelia Jimenez medical decision maker if she is unable. Patient?s choice is to return home upon d/c. Pt followed up with PCP 3 days ago. Family ( or kids) will provide transportation. D/C plan: Return home Next of Kin: Evelia Jimenez, , phone# [phone] PCP: Iman Peter from [facility] Address: [address] [facility] [address]
--- NOTE | 2025-03-31 13:57 | PC.PT ---
PT eval only. Patient is safe to ambulate to the bathroom and in the halls with no AD or staff. RN made aware.
--- NOTE | 2025-03-31 15:12 | ESPR_ITS ---
<Statement entered by Seble Christopher MD - 04/01/25 13:36> I agree with plan and examination findings on this note , I have personally seen and examined patient. Labs and imaging reviewed. Seble Christopher PGY3 Documentation for date of: 03/31/25 Subjective Subjective Interval history: Patient is an overnight admit. Patient seen and examined at bedside this morning patient states that he has been feeling a bit dizzy for couple weeks and was recommended to get his vision checked however he has not had a chance yet. Patient states that yesterday he was having increased vertigo and had headache. Nausea vomiting has completely resolved however patient still has some work to go and denies any blurry vision. Patient also denies any recent upper respiratory infection or sick contacts. Stroke rule out workup was ordered including MRI which was negative and showed incidental finding of right mastoiditis however patient denies any fevers chills or ear pain. Patient is pending echo and in-house neurologist Dr Moon recommendations. All other CVA workup has been negative. Vitals are stable and labs are unremarkable with exception of hemoglobin A1c to be 7.3 and T. bili 2.0. Patient has no other complaints. Exam Vital Signs Temp Pulse Resp BP Pulse Ox O2 Del Method 97.2 F 58 L 13 129/82 97 Room Air 03/31/25 12:00 03/31/25 12:00 03/31/25 12:00 03/31/25 12:00 03/31/25 12:00 03/31/25 12:00 Narrative Exam GENERAL: Middle aged obese male, Kazakh speaking pleasant and cooperative A&Ox3 Not in acute distress NEURO: no focal neurological deficits noted HEENT: Atraumatic, Normocephalic. mucous membranes moist. Eyes open, symmetrical, & clear HEART: Normal Heart Sounds LUNGS: Clear to auscultation with no wheezing or crackles. ABDOMEN: soft, non-distended, non-tender, bowel sounds heard, no guarding or rebound tenderness SKIN: No Rash or ecchymoses EXTREMITIES: No edema, tenderness, able to move all 4 extremities, pedal pulses palpated Objective Labs 04/01/25 05:10 04/01/25 05:10 Labs: Laboratory Results - last 24 hr 03/30/25 03/31/25 18:48 05:33 WBC 7.7 6.9 RBC 4.80 4.85 Hgb 15.4 15.5 Hct 43.3 44.5 MCV 90 92 MCH 32.1 32.0 MCHC 35.6 34.8 RDW Std Deviation 44.6 H 46.0 H Plt Count 219 203 Neut % (Auto) 57 57 Lymph % (Auto) 32 32 Davis % (Auto) 9 9 Eos % (Auto) 1 1 Baso % (Auto) 1 1 Neut # (Auto) 4.4 3.9 Lymph # (Auto) 2.5 2.2 Davis # (Auto) 0.7 0.6 Eos # (Auto) 0.1 0.1 Baso # (Auto) 0.0 0.1 Immature Gran # (Auto) 0.07 H 0.05 H Absolute Nucleated RBC 0.00 0.00 Immature Gran % 1 H 1 H Nucleated RBC % 0 0 PT 12.4 H INR 1.1 APTT 27.9 Sodium 140 144 Potassium 3.9 3.6 Chloride 105 107 Carbon Dioxide 24.5 26.1 Anion Gap 11 11 BUN 14 13 Creatinine 1.0 0.7 Estim Creat Clear Calc Not Performed. 171.8 eGFR > 60 > 60 BUN/Creatinine Ratio 14 19 Glucose [address] Glu mg/dL 163 H Hemoglobin A1c 7.3 H Calculated Osmolality 285 287 Calcium 9.6 8.5 Corrected Calcium 9.6 8.5 Phosphorus 2.8 Magnesium 2.2 2.0 Total Bilirubin 1.3 H 2.0 H D AST 25 22 ALT 32 30 Alkaline Phosphatase 79 65 Troponin I < 0.020 Total Protein 6.9 6.3 Albumin 4.8 4.3 D Globulin 2.1 L 2.0 L Albumin/Globulin Ratio 2.3 H 2.2 Triglycerides 157 H Cholesterol 182 LDL Cholesterol, Calc 123 HDL Cholesterol 28 L Cholesterol/HDL Ratio 6.5 TSH 1.15 Quality Measures Quality Measures VTE prophylaxis Assessment & Plan Assessment Current Active Medications: Generic Name Dose Route Start Last Admin Trade Name Freq PRN Reason Stop Dose Admin Acetaminophen 650 mg 03/30/25 20:07 Acetaminophen 325 Mg Tablet PO 04/29/25 20:06 Q6H PRN Fever >99.5 Acetaminophen 1,000 mg 03/30/25 20:07 Acetaminophen 500 Mg Tablet PO 04/29/25 20:06 Q6H PRN PAIN SCALE 1-3 (mild Aspirin 325 mg 03/31/25 09:00 03/31/25 09:12 Aspirin 325 Mg Tablet PO 04/30/25 08:59 325 mg QDAY EKTA Administration Atorvastatin Calcium 80 mg 03/30/25 21:00 03/30/25 22:14 Atorvastatin Calcium 20 Mg Tablet PO 04/29/25 20:59 80 mg HS EKTA Administration Dextrose 25 ml 03/30/25 20:37 Dextrose 50%-Water Inj 50 Ml Syringe IV 04/29/25 20:36 Q15MIN PRN BG 50-70 responsive npo pt Dextrose 50 ml 03/30/25 20:37 Dextrose 50%-Water Inj 50 Ml Syringe IV 04/29/25 20:36 Q15MIN PRN BG <50 OR BG <70 & pt unresponsive Glucagon 1 mg 03/30/25 20:37 Glucagon Inj 1 Mg Vial IM Q15MIN PRN BG <70, and no IV access Sodium Chloride 1,000 mls @ 60 mls/hr 03/30/25 20:39 03/30/25 22:16 Ns IV 04/29/25 20:38 60 mls/hr .[id number] EKTA Administration Insulin Human Lispro 0 unit 03/31/25 07:30 Insulin Lispro (Admelog) 1 Unit/0.01 Ml Unit SC 04/30/25 07:29 AC EKTA Protocol Labetalol HCl 10 mg 03/30/25 20:22 Labetalol Inj 5 Mg/Ml Vial 20 Ml IVP 04/29/25 20:21 Q6H PRN SBP>220 Meclizine HCl 25 mg 03/31/25 07:49 Meclizine Hcl 25 Mg Tablet PO 04/30/25 07:48 TID PRN dizzness Ondansetron HCl 4 mg 03/30/25 20:07 Ondansetron Inj 2 Mg/Ml Inj 2 Ml IVP 04/29/25 20:06 Q6H PRN NAUSEA OR VOMITING Protocol Potassium Chloride 40 meq 03/31/25 15:12 Potassium Chloride 20 Meq Tabcr PO 03/31/25 15:13 X1 ONE Plan Mr. Knight is a 44-year-old male with past medical history of diabetes who came to the ED due to dizziness. Patient is admitted for CVA workup. #CVA, ruled out #Vertigo #Mastoiditis #Chronic sinusitis Patient had dizziness onset around 5 PM on 03/30/2025 worsens with movement gets better while laying still Initial NIHSS: 0, no TNK was administered CT head and CTA head/neck negative for LVO acute hemorrhage, midline shift, mass effect MRI brain is negative for infarct but shows right mastodidtis and Significant maxillary antral ethmoid chronic sinusitis ? Permissive hypertension, labetalol as needed for systolic blood pressure more than 220 ? Echo bubble study pending -Cotninue Aspirin and statin, will discontinue upon in house neurology recs ? Euglycemia ? Speech, physical therapy consulted ? Neurochecks every 4 ? Neurologist Dr. Moon is consulted, appreciate recommendations -Meclizine PRN ordered -Started Unasyn 03/31- # Non-Insulin dependent type 2 Diabetes mellitus ? A1c 7.3 -Pt home medication include metformin 1000mg BID, Janumet, Jardiance and Ozempic ? Insulin sliding scale ordered ? Hypoglycemia protocol in place #Nonalcoholic Fatty Liver Disease #Hepatomegaly Both AST and ALT are within normal limits, however total bilirubin has elevated at 2.0 - Ultrasound of the liver shows fatty liver and hepatomegaly - Patient denies any pain in the right upper quadrant - Patient is advised to follow-up outpatient with primary care for surveillance of liver function tests Health Maintenance: Disposition: Telemetry, CVA workup Diet: Carbohydrate consistent low Thrombo prophylaxis: SCDs Gastric Ulcer prophylaxis: Not indicated CODE STATUS: Limited code, no intubation Assessment and plan discussed with my senior resident Dr. Christopher & attending physician Dr. Leelee Hanson (PGY-1)- Internal medicine resident Attending Provider Attestation/Addendum I attest that I was physically present for the evaluation, physical examination, lab and imaging review of the patient with the residents. I discussed the case with the residents and agree with the findings and plans of care as documented above. Patient is a 44 years old male with past medical history of diabetes who presented to the ED with complaint of dizziness. Patient was admitted overnight for evaluation of dizziness and CVA workup. At bedside today, he continues to complaint of dizziness. He also had nausea at home which has now resolved. CT head was negative for acute hemorrhage, mass effect or midline shift. MRI brain was obtained which is also negative for infarct but shows right mastoiditis and sinusitis. Continues to be on aspirin and statin. Since patient has significant dizziness, mastoiditis/labyrinth that is concern, we will start the patient on IV antibiotics and discussed with neurology. On insulin regimen for diabetes. Noted to have elevated bilirubin, liver ultrasound was obtained, shows fatty liver. Does not have any abdominal symptoms, we will monitor closely. Virginia Mckoy MD
[2025-03-31] MEDS: POTASSIUM CHLORIDE 20 mEq TABCR 40 MEQ PO (16:16)
[2025-03-31] MEDS: AMPICILLIN/SULBAC INJ 1.5 GM in SODIUM CHLORIDE 0.9% (Popper) 50 ML IV (18:43)
--- NOTE | 2025-03-31 20:07 | ECHO_ITS ---
Transthoracic Echo Report Ht (in): 69 Wt (lb): 273 Exam Location: Echo Lab Status: Inpatient Office Services Representative: Jenise De Jesus Indications: Procedure Performed: BP: 128 / 81 HR: 104 Technical Quality: Technically Difficult Due to Body Habitus MEASUREMENTS (Male / Female) Normal Values 2D ECHO LV Diastolic Diameter PLAX 4.5 cm 4.2 - 5.9 / 3.9 - 5.3 cm LV Systolic Diameter PLAX 2.1 cm IVS Diastolic Thickness 1.1 cm 0.6 - 1.0 / 0.6 - 0.9 cm LVPW Diastolic Thickness 1.3 cm 0.6 - 1.0 / 0.6 - 0.9 cm LV Relative Wall Thickness 0.5 LVOT Diameter 2.5 cm Ascending Aorta Diameter 3.3 cm DOPPLER TR Peak Velocity 178.0 cm/s TR Peak Gradient 12.7 mmHg FINDINGS Left Ventricle Left Ventricle not well visualized. Estimated ejection fraction from PLAX windows estimated at 80%. Right Ventricle The right ventricle not well visualized. Left Atrium Left atrium not well visualized. Right Atrium Right atrium is not well visualized. Atrial Septum The interatrial septum not well visualized. Aorta The aorta is normal by two-dimensional, color flow and Doppler interrogation. Mitral Valve The mitral valve is normal by two-dimensional, color flow and Doppler interrogation. There is no significant mitral valve regurgitation, stenosis or prolapse. Aortic Valve The aortic valve is trileaflet and normal by two-dimensional, color flow and Doppler interrogation. There is no significant aortic valve regurgitation. Tricuspid Valve The tricuspid valve is not well visualized. Pulmonic Valve The pulmonic valve is not well visualized. There is no significant pulmonic valve regurgitation. Vessels The pulmonary artery appears normal. The inferior vena cava pulmonary and hepatic veins appear normal. Pericardium The pericardium is not well visualized. CONCLUSIONS Indications: CVA Workup Suboptimal acoustic windows. LV EF estimated at 80%. Recommend ADAL for further evaluation if needed. Idalia White (Electronically Signed) Final Date: 07 April 2025 13:22
[2025-03-31] MEDS: ATORVASTATIN CALCIUM 20 MG TABLET 80 MG PO (21:41)
--- NOTE | 2025-03-31 23:14 | PD.NEUROPROG ---
Documentation for date of: 03/31/25 Subjective Subjective Interval history: Patient was seen in telemetry today with his family at the bedside. Denies any new symptoms or recurrence of similar symptoms after admission. No more dizziness or headache. He is back to his baseline. He is able to ambulate without assistance Exam - Neurology Vital Signs Temp Pulse Resp BP Pulse Ox O2 Del Method 98.2 F 76 12 152/84 H 99 Room Air 03/31/25 20:00 03/31/25 20:00 03/31/25 20:03/31/25 20:00 03/31/25 20:03/31/25 20:00 Narrative Exam GENERAL APPEARANCE: Well hydrated, well-nourished in no acute distress. HEENT: Normocephalic, atraumatic, extraocular movements intact. Pupils: Equal reacting to light and accommodation, tympanic membranes are bilaterally intact. There is no bulge or retraction. Throat without erythema or exudate. Moist oral mucosa. NECK: Supple, no JVD or bruits. CARDIOVASULAR: Heart: S1, S2 heard, regular without S3-S4 or murmur no rubs or gallops. LUNGS/CHEST: Clear to auscultation bilaterally. No rails, rhonchi, or wheezing. Normal inspection. ABDOMEN: Soft, nontender, with normal bowel sounds. No pulsatile masses. No rebound, rigidity, or guarding. Normal inspection and palpation. EXTREMITIES: Normal inspection and palpation. No edema, clubbing or cyanosis. SKIN: Warm and dry without rashes. Normal inspection. MUSCULOSKELETAL: No cervical, thoracic, lumbar or midline bony tenderness. Normal inspection. NEURO: Alert, awake and oriented x3. Cranial nerves: II through XII grossly intact. Speech and language: Normal with no dysarthria or dysphasia. Motor system: Tone and bulk: Normal: Strength: 5 out of 5 in all 4 extremities; No pronator drift noted. Deep tendon reflexes: 2+ bilaterally symmetrical. Plantar reflex: Downgoing bilaterally. Sensory system: Intact to all modalities of sensation bilaterally. Coordination: Intact to [id number]-[id number]-vprog and gfve-wcpl-xtau test bilaterally. No ataxia, no dysmetria, or dysdiadochokinesia noted. No intention tremors noted. Gait: Normal. Toe, heel, tandem walk all are normal. Romberg: Negative. No signs of meningeal irritation noted. PSYCHIATRIC: Normal mood and affect. Objective Labs 04/01/25 05:10 04/01/25 05:10 Labs: Laboratory Results - last 24 hr 03/31/25 05:33 WBC 6.9 RBC 4.85 Hgb 15.5 Hct 44.5 MCV 92 MCH 32.0 MCHC 34.8 RDW Std Deviation 46.0 H Plt Count 203 Neut % (Auto) 57 Lymph % (Auto) 32 [place]cock % (Auto) 9 Eos % (Auto) 1 Baso % (Auto) 1 Neut # (Auto) 3.9 Lymph # (Auto) 2.2 [place] # (Auto) 0.6 Eos # (Auto) 0.1 Baso # (Auto) 0.1 Immature Gran # (Auto) 0.05 H Absolute Nucleated RBC 0.00 Immature Gran % 1 H Nucleated RBC % 0 Sodium 144 Potassium 3.6 Chloride 107 Carbon Dioxide 26.1 Anion Gap 11 BUN 13 Creatinine 0.7 Estim Creat Clear Calc 171.8 eGFR > 60 BUN/Creatinine Ratio 19 Glucose [address] Glu mg/dL 163 H Hemoglobin A1c 7.3 H Calculated Osmolality 287 Calcium 8.5 Corrected Calcium 8.5 Phosphorus 2.8 Magnesium 2.0 Total Bilirubin 2.0 H D AST 22 ALT 30 Alkaline Phosphatase 65 Total Protein 6.3 Albumin 4.3 D Globulin 2.0 L Albumin/Globulin Ratio 2.2 Triglycerides 157 H Cholesterol 182 LDL Cholesterol, Calc 123 HDL Cholesterol 28 L Cholesterol/HDL Ratio 6.5 Assessment & Plan Assessment and plan (1) Vertigo: Status: Acute Assessment and plan: As the symptoms have resolved, I do not think that the mastoiditis that MRI showed is acute, likely chronic consistent with other sinusitis. Reassurance given to the patient regarding findings on MRI brain and liver ultrasound showing fatty liver. Patient is stable from neurology standpoint, lifestyle changes discussed.
[2025-04-01] VITALS: BP 127/85; PULSE 63; PULSE 75; RESP 18; TEMP 36.5; O2SAT 100
[2025-04-01] MEDS: AMPICILLIN/SULBAC INJ 3 GM in SODIUM CHLORIDE 0.9% (Popper) 50 ML IV ×2 (00:54→05:34)
[2025-04-01 04:00] VITALS: BP 130/85; PULSE 60; PULSE 61; RESP 17; TEMP 36.6; O2SAT 100
[2025-04-01 05:29] LABS: Basophils % (Auto) 1 % (0-2.5); Eosinophils # (Auto) 0.1 Thou/mm3 (0.0-0.5); Eosinophils % (Auto) 1 % (0-10); Hematocrit 43.8 % (41.0-53.0); Hemoglobin 15.5 g/dL (13.5-16.0); Immature Granulocytes % (Auto) 1 % (0-0); Immature Granulocytes Auto 0.04 Thou/mm3 (0.00-0.00); Lymphocytes # (Auto) 1.8 Thou/mm3 (1.0-4.8); Lymphocytes % (Auto) 31 % (10-50); Mean Corpuscular HGB Conc 35.4 g/dl (31.0-37.0); Mean Corpuscular Hemoglobin 31.9 pg (25.0-35.0); Mean Corpuscular Volume 90 fL (80-100); Monocytes # (Auto) 0.6 Thou/mm3 (0.0-0.8); Monocytes % (Auto) 11 % (0-12); Neutrophils # (Auto) 3.2 Thou/mm3 (1.8-7.7); Neutrophils % (Auto) 56 % (37-80); Nucleated Red Blood Cell % 0 /100 WBC (0); Platelet Count 165 Thou/mm3 (140-440); RDW Standard Deviation 43.7 fL (35.1-43.9); Red Blood Count 4.86 Miln/mm3 (4.50-5.90); White Blood Count 5.7 Thou/mm3 (3.8-10.6)
[2025-04-01 05:55] VITALS: BMI 40.4
[2025-04-01 05:55] LABS: Alanine Aminotransferase 31 U/L (10-49); Albumin, Serum 4.2 gm/dL (3.5-5.0); Albumin/Globulin Ratio 2.2 (1.2-2.2); Alkaline Phosphatase 70 U/L (46-116); Anion Gap 11 (7-16); Aspartate Amino Transferase 23 U/L (0-34); BUN/Creatinine Ratio 16 Ratio (12-20); Bilirubin,Total 2.3 mg/dL (0.3-1.2); Blood Urea Nitrogen 11 mg/dL (9-23); Calcium 8.3 mg/dL (8.3-10.6); Calcium (Corrected) 8.3 mg/dL (8.5-10.1); Carbon Dioxide 24.3 mMol/L (20.0-31.0); Chloride 105 mMol/L (98-107); Creatinine (Component) 0.7 mg/dL (0.6-1.3); Estimated Creatinine Clearance 171.8 mL/min (>60); Globulin 1.9 gm/dL (2.3-3.5); Glucose 135 mg/dL (74-106); Magnesium 1.8 mg/dL (1.6-2.6); Osmolality,Calculated 280 (275-295); Phosphorous 3.1 mg/dL (2.4-5.1); Potassium 4.2 mMol/L (3.4-5.1); Sodium 140 mMol/L (136-145); Total Protein 6.1 gm/dL (5.7-8.2); eGFR > 60 See Note
[2025-04-01 08:00] VITALS: BP 110/73; PULSE 68; PULSE 69; RESP 19; TEMP 36.2; O2SAT 98
[2025-04-01] MEDS: Magnesium Sulfate 4 GM Ivpb 4 GM/50 ML BAG IV (08:05)
[2025-04-01] MEDS: Aspirin 325 MG TABLET PO (08:05)
[2025-04-01 08:09] LABS: Bilirubin,Direct 0.6 mg/dL (0.0-0.3)
[2025-04-01 09:00] VITALS: RESP 100
--- NOTE | 2025-04-01 10:04 | ESDS_ITS ---
Planned Discharge Date 04/01/25 DS: Providers Provider Date of admission: 03/30/25 20:07 Primary care physician: JUAN PABLO Hawthorne Admitting Provider: Hayes Garcia MD Attending Provider on Admission: Virginia Mckoy MD Consults: 03/30/25 18:36 Consult to Neurology / Tele-Neurology Routine Comment: Consulting Provider: [facility] 03/30/25 20:22 Consult to Neurology / Tele-Neurology Stat Comment: Consulting Provider: Jaron Moon 03/30/25 20:23 Referral Physical Therapy Stat Comment: Physician Instructions: Referral Speech Therapy Stat Comment: Attending Provider on DC: Norbert Hanson MD Discharging Provider: Norbert Hanson MD DS: Diagnosis Problem List Completed Was Problem List Reviewed/Reconciled?: Yes Hospital Course Hospital Course Hospital course: Mr. Knight is a 44-year-old male with past medical history of diabetes presented to [facility] ED on 03/30/25 due to dizziness and vomiting. Due to concern for cerebellar stroke, stroke alert was activated in the ED and patient was admitted to the hospital for further stroke workup. Patient was started on aspirin and statin, MRI with MRA and CT were negative for acute hemorrhage, mass effect or midline shift as well as ischemic strokes. Has neurologist Dr. Moon consulted for further recommendations which included patient did not have a stroke or any neurological findings. MRI showed incidental finding of right mastoiditis and chronic sinusitis for which patient denies any symptoms., Fullness, recent upper respiratory infection therefore per neurologist this is not acute mastoiditis. Patient is advised to follow-up outpatient within ENT for further evaluation and recommendation outpatient. Patient is dizziness has completely resolved and does not exhibit any other neurological deficits. During hospitalization patient's A1c was found to be 7.3 and patient stated that he currently takes Janumet, Jardiance, metformin and Ozempic for the management of his diabetes. Patient is advised to discontinue metformin as Janumet is a combination pill with metformin. Other findings also include mild elevation in total bilirubin with peak at 2.4 but the patient denied any right upper quadrant tenderness or pain. Ultrasound of the liver showed fatty liver disease. Patient is counseled and advised on dietary ramana fication as well as lifestyle modifications to lose weight. Patient is also advised to follow-up with primary care for regular surveillance of liver function tests liver ultrasound. Patient is hemodynamically stable to be discharge home to self-care. Discharge Recommendations -Follow up outpatient with primary care within 1 week, please discuss with your primarycare that we have discontinued your metformin due to you taking Janumet and to discuss liver ultrasound findings -Please follow up with an ENT regarding right mastoidditis finding on MRI -Continue taking all your other medications as directed -If you have any new symptoms, worsening of symptoms please return to the ED Hospitalization Diagnosis #CVA, ruled out #Vertigo #Mastoiditis #Chronic sinusitis # Non-Insulin dependent type 2 Diabetes mellitus #Nonalcoholic Fatty Liver Disease #Hepatomegaly Assessment and plan discussed with my attending physician Dr. Leelee Hanson (PGY-1)- Internal medicine resident Time Spent with Patient Time attestation: Total time spent providing and/or coordinating discharge services: Time spent: Less than 30 minutes Exam Vital Signs Temp Pulse Resp BP Pulse Ox O2 Del Method 97.8 F 60 17 130/85 H 100 Room Air 04/01/25 04:00 04/01/25 04:00 04/01/25 04:00 04/01/25 04:00 04/01/25 04:00 04/01/25 04:00 Narrative Exam GENERAL: Middle aged obese male, Barbadian speaking pleasant and cooperative A&Ox3 Not in acute distress NEURO: no focal neurological deficits noted HEENT: Atraumatic, Normocephalic. mucous membranes moist. Eyes open, symmetrical, & clear HEART: Normal Heart Sounds LUNGS: Clear to auscultation with no wheezing or crackles. ABDOMEN: soft, non-distended, non-tender, bowel sounds heard, no guarding or rebound tenderness SKIN: No Rash or ecchymoses EXTREMITIES: No edema, tenderness, able to move all 4 extremities, pedal pulses palpated Discharge Plan Plan Patient Disposition: HOME (Self Care) Patient condition on transfer: Stable Care Plan Goals: -Follow up outpatient with primary care within 1 week, please discuss with your primarycare that we have discontinued your metformin due to you taking Janumet and to discuss liver ultrasound findings -Please follow up with an ENT regarding right mastoidditis finding on MRI -Continue taking all your other medications as directed -If you have any new symptoms, worsening of symptoms please return to the ED Prescriptions/Referrals Prescriptions/Med Rec: New meclizine 25 mg Tablet 25 mg PO TID PRN (Reason: dizzness) 30 Days Qty: 90 0RF Continued atorvastatin 40 mg tablet 40 mg PO DAILY Patient Comments: TOME 1 TABLETA POR V A ORAL TODOS LOS D Jardiance 25 mg tablet 25 mg PO DAILY Patient Comments: TOME 1 TABLETA POR V A ORAL TODOS LOS D FOR 90 DAYS Janumet 50-1,000 mg tablet 1 tab PO BID Referrals: Iman Peter FNP [Primary Care Provider] - Patient/Caregiver Discharge Instructions Education Materials: Nonalcoholic Fatty Liver ... Print Language: Barbadian Stand Alone Forms: Pauline Award Info., Patient Portal Info Letter Discharge Order Discharge Orders: Discharge (Routine); Ordered 04/01/25 Ordered By: Norbert Hanson Quality Discharge Quality Measures VTE prophylaxis Attestestation MD Attestation I attest that I was physically present for the evaluation, physical examination, lab and imaging review of the patient with the residents. I discussed the case with the residents and agree with the findings and plans of care as documented above. Virginia Mckoy MD
--- NOTE | 2025-04-01 10:40 | PC.SS ---
Follow up note: Pt will dc home today.
--- NOTE | 2025-04-01 11:13 | PC.NURSE ---
Addendum entered by Irish Karimi RN 04/01/25 11:33: Patient called and given discharge instructions over the phone. Homogenizer Operator [id number] Original Note: Patient received d/c instructions, piv removed, vehicle monitor technician removed. Patient left without having instructions explained verbally, did not sign discharge instructions, patient belongings, nor other applicable forms. Patient alert and oriented, independent ambulation, was with patient when he left.
== END 2025-04-01 11:05 | disposition home or self-care (01) | DRG 111 ==
LOC: SERX 19:26 → SERHOLD 20:21 → S2NX 22:36
PROVIDERS: Internal Medicine; Physician Assistant; Admitting Provider Student in an Organized Health Care Education/Training Program; Emergency Provider Emergency Medicine; PCP Nurse Practitioner Family; Visit Provider Student in an Organized Health Care Education/Training Program
DX: R42 Dizziness and giddiness (principal); E11.9 Type 2 diabetes mellitus without complications; H70.91 Unspecified mastoiditis, right ear; J32.2 Chronic ethmoidal sinusitis; K76.0 Fatty (change of) liver, not elsewhere classified; R16.0 Hepatomegaly, not elsewhere classified; Z79.84 Long term (current) use of oral hypoglycemic drugs; Z79.4 Long term (current) use of insulin
CPT/HCPCS: 36415; 70450; 70496; 70498; 70544; 76705; 80053; 80061; 80307; 81001; 82248; 83036; 83735; 84100; 84443; 84484; 85025; 85610; 85730; 87086; 92610; 93005; 93306; 94762; 97161; 99291; A4649; J0295; J3475; J7030; J7050; Q9967; A9270